=== PATIENT | male | born 1995 | race American Indian/Alaskan Native ===

== ENCOUNTER 2019-09-15 10:07 | Emergency (ER) | payer SELFPAY ==
[2019-09-15 10:48] VITALS: BP 121/76
--- NOTE | 2019-09-15 13:45 | Emergency Department Report ---
{null, ED Eye Problem HPI - General Chief complaint: Eye Problems Stated complaint: LT EYE SWELLING/PAIN Time Seen by Provider: 09/15/19 13:31 Source: patient Mode of arrival: Ambulatory Limitations: No Limitations - History of Present Illness Initial comments: Is a pleasant 24-year-old male presents the emergency department chief complaint of left upper eyelid swelling that he noticed this morning. Patient denies any injuries. Patient denies any vision changes. Patient reports pain is 5 out of 10 described as throbbing. Patient denies any known past medical history, current medication use or known allergies to medications. He denies any associated fever, chills, night sweats, headache, dizziness, blurry vision, nausea, vomiting, diarrhea, chest pain, shortness of breath. Patient does not wear contacts or glasses. - Related Data Home Medications Medication Instructions Recorded Confirmed Last Taken oxyCODONE /ACETAMINOPHEN [Percocet 1 tab PO Q6HR PRN 12/08/14 12/14/14 12/13/14 21:00 5/325] Previous Rx's Medication Instructions Recorded Last Taken Type Erythromycin [Erythromycin Ophth 10 applic OP Q6HR #1 tube 09/15/19 Unknown Rx Oint] Naproxen 500 mg PO BID #20 tablet 09/15/19 Unknown Rx Allergies Allergy/AdvReac Type Severity Reaction Status Date / Time No Known Allergies Allergy Unverified 12/08/14 11:34 ED Review of Systems ROS: Stated complaint: LT EYE SWELLING/PAIN Other details as noted in HPI Comment: All other systems reviewed and negative Constitutional: denies: chills, fever Eyes: as per HPI, eye pain. denies: eye discharge, vision change ENT: denies: ear pain, throat pain Respiratory: denies: cough, shortness of breath, wheezing Cardiovascular: denies: chest pain, palpitations Endocrine: no symptoms reported Gastrointestinal: denies: abdominal pain, nausea, diarrhea Genitourinary: denies: urgency, dysuria Musculoskeletal: denies: back pain, joint swelling, arthralgia Skin: denies: rash, lesions Neurological: denies: headache, weakness, paresthesias Psychiatric: denies: anxiety, depression Hematological/Lymphatic: denies: easy bleeding, easy bruising ED Past Medical Hx - Past Medical History Previous Medical History?: No Hx Asthma: No - Surgical History Past Surgical History?: Yes Additional Surgical History: Right ankle surgery - Social History Smoking Status: Current Every Day Smoker - Medications Home Medications: Home Medications Medication Instructions Recorded Confirmed Last Taken Type oxyCODONE /ACETAMINOPHEN [Percocet 1 tab PO Q6HR PRN 12/08/14 12/14/14 12/13/14 21:00 History 5/325] Erythromycin [Erythromycin Ophth 10 applic OP Q6HR #1 tube 09/15/19 Unknown Rx Oint] Naproxen 500 mg PO BID #20 tablet 09/15/19 Unknown Rx ED Physical Exam - General Limitations: No Limitations General appearance: alert, in no apparent distress - Head Head exam: Present: atraumatic, normocephalic - Eye Eye exam: Present: normal appearance, PERRL, EOMI, conjunctival injection, other (There is a chalazion to the medial upper eyelid with some mild swelling to the upper eyelid. No hyphema, hypopyon, no periorbital edema or tenderness to palpation around the eye. Normal extraocular movements without pain.) Pupils: Present: normal accommodation - ENT ENT exam: Present: normal exam, normal orophraynx, mucous membranes moist - Neck Neck exam: Present: normal inspection, full ROM. Absent: tenderness, meningismus - Respiratory Respiratory exam: Present: normal lung sounds bilaterally. Absent: respiratory distress, wheezes, rales, rhonchi, stridor, chest wall tenderness - Cardiovascular Cardiovascular Exam: Present: regular rate, normal rhythm. Absent: systolic murmur, diastolic murmur, rubs, gallop - GI/Abdominal GI/Abdominal exam: Present: soft, normal bowel sounds. Absent: distended, tenderness, guarding, rebound, rigid - Rectal Rectal exam: Present: deferred - Extremities Exam Extremities exam: Present: normal inspection, full ROM, normal capillary refill. Absent: tenderness, calf tenderness - Back Exam Back exam: Present: normal inspection, full ROM. Absent: tenderness, CVA tenderness (R), CVA tenderness (L) - Neurological Exam Neurological exam: Present: alert, oriented X3, normal gait - Psychiatric Psychiatric exam: Present: normal affect, normal mood - Skin Skin exam: Present: warm, dry, intact, normal color. Absent: rash ED Course Vital Signs 09/15/19 10:42 Temperature 98.4 F Pulse Rate 70 Respiratory 18 Rate Blood Pressure 121/76 O2 Sat by Pulse 100 Oximetry ED Medical Decision Making - Medical Decision Making Patient's exam was classic for an internal stye. Recommended warm compresses and will give antibiotic ointment and anti-inflammatories. Recommend follow-up with ophthalmology if symptoms not improve. Return to emergency department any change or worsening symptoms. Patient verbalized understanding the diagnosis, t reatment plan and follow-up instructions and all of his questions were answered. - Differential Diagnosis chalazion, hordelum, conjunctivitis, corneal abrasion Critical care attestation.: If time is entered above; I have spent that time in minutes in the direct care of this critically ill patient, excluding procedure time. ED Disposition Clinical Impression: Chalazion left upper eyelid Disposition: DC-01 TO HOME OR SELFCARE Is pt being admited?: No Condition: Stable Instructions: Chalazion (ED) Prescriptions: Erythromycin [Erythromycin Ophth Oint] 10 applic OP Q6HR #1 tube Naproxen 500 mg PO BID #20 tablet Referrals: SHANTE DOE MD [Primary Care Provider] - 3-5 Days Forms: Work/School Release Form(ED) Time of Disposition: 13:45 }
== END 2019-09-15 13:52 | disposition home or self-care (01) ==
LOC: ED 10:07
DX: H00.14 Chalazion left upper eyelid (principal); F17.200 Nicotine dependence, unspecified, uncomplicated; Z79.899 Other long term (current) drug therapy; Z98.890 Other specified postprocedural states
CPT/HCPCS: 99281